=== PATIENT | male | born 1965 | race Caucasian/White ===

== ENCOUNTER 2019-08-29 07:20 | Emergency (ER) | payer MEDICARE ==
[~2019-08-29] VITALS: Ht 177.8 cm; Wt 81.0 kg
[2019-08-29 07:23] VITALS: BP 152/96
[2019-08-29] MEDS ORDERED: FAMOTIDINE 20 MG TABLET ONE (07:51)
[2019-08-29] MEDS ORDERED: DIPHENHYDRAMINE 25 MG CAPSULE ONE (07:51)
[2019-08-29] MEDS ORDERED: DEXAMETHASONE 4 MG TABLET ONE (07:51)
[2019-08-29] MEDS ORDERED: DIPHENHYDRAMINE 50 MG/ML, 1ML IVPush ONE (08:00)
[2019-08-29] MEDS ORDERED: DEXAMETHASONE 4 MG/ML, 1ML IVPush ONE (08:00)
[2019-08-29] MEDS ORDERED: FAMOTIDINE 20 MG TABLET PO ONE (08:00)
[2019-08-29] MEDS ORDERED: DEXAMETHASONE 4 MG/ML, 1ML ONE (08:06)
[2019-08-29] MEDS ORDERED: DIPHENHYDRAMINE 50 MG/ML, 1ML ONE (08:06)
--- NOTE | 2019-08-29 08:24 | NUR ---
MEDICATED PER SEP. PT STATES UPPER LIP FEELS LIKE IT IS GETTING MORE SWOLLEN SINCE ARRIVAL AND THAT IT IS PAINFUL. TONGUE NOT SWOLLEN. CONTINUE TO MONITOR
--- NOTE | 2019-08-29 09:27 | NUR ---
LIP SWELLING DECREASING. PT WALKING HALLS STATING HE THINKS HE IS WIRED FROM [employer].
== END 2019-08-29 10:20 | disposition home or self-care (01) ==
LOC: ED 09:14
DX: T78.3XXA Angioneurotic edema, initial encounter (principal); I10 Essential (primary) hypertension; Y92.89 Other specified places as the place of occurrence of the external cause
CPT/HCPCS: 96374; 96375; 99284; J1100; J1200

== ENCOUNTER 2019-11-12 12:20 | Emergency (ER) | payer MEDICARE ==
[~2019-11-12] VITALS: Ht 175.3 cm; Wt 86.0 kg
[2019-11-12 12:36] VITALS: BP 147/54
[2019-11-12 13:14] LABS: MICROSCOPIC INDICATED
[2019-11-12 13:23] LABS: CULTURE INDICATED? NO
== END 2019-11-12 13:55 | disposition left against medical advice (07) ==
LOC: ED 13:44
DX: R10.9 Unspecified abdominal pain (principal); R11.0 Nausea; Z53.21 Procedure and treatment not carried out due to patient leaving prior to being seen by health care provider
CPT/HCPCS: 81001

== ENCOUNTER 2019-12-03 14:26 | Emergency (ER) | payer MEDICARE ==
[~2019-12-03] VITALS: Ht 177.8 cm; Wt 86.0 kg
--- NOTE | 2019-12-03 15:08 | NUR ---
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
--- NOTE | 2019-12-03 15:36 | NUR ---
PT HAS KNOWN KIDNEY STONES. IS WORKING WITH MD TO SET UP A SURGICAL APPT TO REMOVE LARGE STONE ON L SIDE. LAST CT ON MON. TODAY PT HERE FOR INCREASED L SIDED FLANK PAIN. PT OTHERWISE STABLE. PLACED ON MONITOR AND IV STARTED. PA AT BEDSIDE. WILL CONTINUE TO MONITOR.
[2019-12-03] MEDS ORDERED: ONDANSETRON 2MG/ML, 2ML ONE (15:52)
[2019-12-03] MEDS ORDERED: KETOROLAC 30 MG/1 ML ONE (15:52)
[2019-12-03] MEDS ORDERED: SODIUM CHLORIDE FLUSH 10ML SYR IVF ONE (16:00)
[2019-12-03] MEDS ORDERED: ONDANSETRON 2MG/ML, 2ML IVPush ONE (16:00)
[2019-12-03] MEDS ORDERED: KETOROLAC 30 MG/1 ML IVPush ONE (16:00)
[2019-12-03 16:13] LABS: MICROSCOPIC AUTO
[2019-12-03 16:18] LABS: ALBUMIN 4.1 g/dL (3.4-5.0); ANION GAP 4 mmol/L (5-15); CALCIUM 8.9 mg/dL (8.5-10.1); CHLORIDE 105 mmol/L (98-107)
[2019-12-03 16:19] LABS: BASOPHILS # (AUTO) 0.05 x10^3/uL (0-0.1); BASOPHILS % (AUTO) 0 % (0-1); EOSINOPHILS % (AUTO) 2 % (1-7); LYMPHOCYTES # (AUTO) 2.31 x10^3/uL (1-3.4); LYMPHOCYTES % (AUTO) 22 % (22-44); MD NO; MEAN CORPUSCULAR HGB CONC 33.4 g/dL (33.2-36.2); MEAN PLATELET VOLUME 6.9 fL (7.4-10.4); MONOCYTES # (AUTO) 0.59 x10^3/uL (0.2-0.8); MONOCYTES % (AUTO) 6 % (2-9); NEUTROPHILS # (AUTO) 7.56 x10^3/uL (1.8-6.8); NEUTROPHILS % (AUTO) 71 % (42-75); PLATELET COUNT 239 x10^3/uL (130-400); RED BLOOD COUNT 5.21 x10^6/uL (4.38-5.82); RED CELL DISTRIBUTION WIDTH 13.5 % (9.4-14.8)
[2019-12-03 18:11] LABS: MICROSCOPIC AUTO
[2019-12-03 18:14] VITALS: BP 145/92
== END 2019-12-03 19:01 | disposition home or self-care (01) ==
LOC: ED 15:26
DX: N13.2 Hydronephrosis with renal and ureteral calculous obstruction (principal); R31.9 Hematuria, unspecified; R94.31 Abnormal electrocardiogram [ECG] [EKG]; I10 Essential (primary) hypertension
CPT/HCPCS: 36415; 74018; 76770; 80048; 81001; 82040; 85025; 87086; 93005; 96374; 96375; 99285; J1885; J2405